=== PATIENT | male | born 1975 | race Caucasian/White ===

== ENCOUNTER → 2024-10-12 17:07 | Outpatient (CLI) | payer MEDICARE, MEDICAID, SELFPAY ==
[2024-10-12 17:48] LABS: Hematocrit 45.8 % (41-53); Hemoglobin 15.3 g/dL (13.5-17.5); Mean Corpuscular HGB Conc 33.4 % (30-36); Mean Corpuscular Hemoglobin 31.4 PG (26-34); Mean Corpuscular Volume 94.2 fL (80-100); Platelet Count 189 X10^3/uL (150-400); Red Blood Cell Count 4.87 X10^6/uL (4.5-5.9); Red Cell Distribution Width 14.6 % (11.6-14.8)
[2024-10-12 17:58] LABS: Alanine Aminotransferase 19 IU/L (<50); Albumin 4.6 g/dL (3.5-5.0); Albumin Globulin Ratio 1.9 (1.0-2.8); Alkaline Phosphatase 54 U/L (38-126); Aspartate Aminotransferase 24 IU/L (17-59); BUN Creatinine Ratio 14.6 (6-22); Bilirubin Total 0.9 mg/dL (0.2-1.3); Blood Urea Nitrogen 13 mg/dL (9-20); Calcium 9.7 mg/dL (8.4-10.2); Carbon Dioxide 35 mmol/L (22-32); Chloride 99 mmol/L (98-107); Cholesterol 131 mg/dL (140-199); Estimated Glomerular Filt Rate > 60 mL/min (>60); Globulin 2.4 g/dL (1.7-4.1); Glucose 99 mg/dL (70-100); HDL Cholesterol 53 mg/dL (40-60); HEMOLYSIS 15 (0-50); LDL Cholesterol Calculated 57 mg/dL (<100); Potassium 3.7 mmol/L (3.4-5.1); Sodium 139 mmol/L (137-145); Triglycerides 107 mg/dL (35-150)
[2024-10-13 15:44] LABS: HIV 1 & 2 Ab/Ag 4th Gen Combo NEGATIVE (NEGATIVE); Hep C Virus Ab w/Reflex Quant NEGATIVE s/c (NEGATIVE)
== END ==
PROVIDERS: PCP Family Medicine; Referring Provider Family Medicine; Visit Provider Family Medicine
DX: R55 Syncope and collapse (principal); R06.02 Shortness of breath; R41.89 Other symptoms and signs involving cognitive functions and awareness; G80.9 Cerebral palsy, unspecified
CPT/HCPCS: 36415; 80053; 80061; 85027; 86803; 87389

== ENCOUNTER → 2024-11-17 13:12 | Outpatient (CLI) | payer MEDICARE, MEDICAID, SELFPAY ==
--- NOTE | 2024-11-17 13:14 | DI.ECHO.S_ITS ---
[facility] : : [address] : : [place] : : [id number] : : Phone: [phone] Echocardiogram Report + + :Name: TRISHA ARREOLA Study Date: 11/17/2024 Height: 69 in : :Hospital ReadingLocation: Weight: 150 lb : : Gender: Male BSA: 1.8 m2 : :: 1975 Age: 49 yrs BP: 137/96 mmHg: :Reason For Study: SYNCOPE : :Ordering Physician: DALILA ABDIPerformed By: Anuradha Paulino : :Referring: DALILA ABDI : + + Interpretation Summary The ejection fraction is estimated to be 60-65%. Diastolic parameters suggest probable normal left ventricular diastolic function and normal filling pressures. The right ventricle is normal in size and function. There is mild aortic regurgitation. There is mild tricuspid regurgitation. Pulmonary artery pressures cannot be estimated because of the lack of a measurable TR jet velocity but the IVC suggests a CVP of around 8 mmHg. There is note of liver enlargement. Recommend dedicated liver ultrasound. Result discussed with Dr. Cohen, covering physician for Dr. Abdi. Procedure: A two-dimensional transthoracic echocardiogram with color flow and Doppler was performed. The study quality was technically adequate. There is no prior echocardiogram noted for this patient. The patient was in sinus rhythm with heart rates between 71-88 bpm during the exam. Left Ventricle: The left ventricle is normal in size and wall thickness. The ejection fraction is estimated to be 60-65%. Diastolic parameters suggest probable normal left ventricular diastolic function and normal filling pressures. Right Ventricle: The right ventricle is normal in size and function. Atria: The left atrial size is normal. Right atrium is small. There is no Doppler evidence for an interatrial shunt. Mitral Valve: The mitral valve leaflets appear mildly thickened, but open well. There is trace mitral regurgitation. Aortic Valve: The aortic valve is trileaflet. The aortic valve opens well. There is no aortic valve stenosis. There is mild aortic regurgitation. Tricuspid Valve: There is mild tricuspid regurgitation. Pulmonary artery pressures cannot be estimated because of the lack of a measurable TR jet velocity but the IVC suggests a CVP of around 8 mmHg. Pulmonic Valve: The pulmonic valve leaflets are thin and pliable; valve motion is normal. There is no pulmonic valvular regurgitation. Great Vessels: The aortic root is normal size. The dimensions of the ascending aorta are normal. The IVC is of normal diameter and collapses less than 50% with a sniff. This suggests a right atrial pressure of 8 mm Hg. Pericardium/ Pleura There is no pericardial effusion. There is no pleural effusion. MMode/2D Measurements & Calculations LVIDd: 4.4 cm LVOT diam: 2.0 cm LVIDs: 2.6 cm Ao root diam: 3.2 cm FS: 41.3 % asc Aorta Diam: 3.0 cm EPSS: 0.25 cm IVSd: 0.76 cm LVPWd: 0.87 cm LV sargent. diameter/BSA (cm/m^2): 2.4 LV sys. diameter/BSA (cm/m^2): 1.4 LA A2 area: 13.2 cm2 RA long axis: 4.8 cm LA A4 area: 15.8 cm2 RA area: 10.1 cm2 LA length (vol): 5.1 cm RA vol: 18.2 ml LA vol: 34.6 ml RA : 10.0 ml/m2 LA vol index: 18.9 ml/m2 IVC diam: 1.4 cm RVD1 (basal): 3.0 cm RVD2 (mid): 3.2 cm TAPSE: 1.7 cm Doppler Measurements & Calculations Ao V2 max: 175.7 cm/sec LVOT Max Ranjith: 134.5 cm/sec Ao V2 mean: 114.9 cm/sec LV V1 max P.2 mmHg Ao max P.3 mmHg LV V1 VTI: 24.1 cm Ao mean P.0 mmHg DENNIS(I,D): 2.3 cm2 Ao V2 VTI: 33.1 cm DENNIS(V,D): 2.4 cm2 sev ratio: 0.73 DENNIS indexed to BSA (cm^2/m^2): 1.2 AI P1/2t: 446.6 msec AI dec slope: 355.3 cm/sec2 MV E max ranjith: 101.7 cm/sec PA V2 max: 153.7 cm/sec MV A max ranjith: 120.6 cm/sec PA V2 mean: 102.7 cm/sec MV E/A: 0.84 PA mean P.8 mmHg Med Peak E' Ranjith: 7.6 cm/sec E/E' med: 13.3 Lat Peak E' Ranjith: 14.6 cm/sec E/E' lat: 7.0 E/e' average: 10.1 MV dec time: 0.13 sec SV(LVOT): 74.9 ml Reading Physician:07:55 PM
--- NOTE | 2024-11-17 17:47 | DI.NM.S_ITS ---
DATE OF SERVICE: 11/17/2024 EXERCISE TREADMILL STRESS TEST PROCEDURE: Exercise treadmill stress test without imaging. ORDERING PROVIDER: Leopoldo Hollins DO. INDICATIONS: The patient is a 49-year-old male with cerebral palsy and developmental delay with a recent syncopal episode. FINDINGS: 1. The patient was able to exercise for 6 minutes 13 seconds on a standard Pedro protocol suggesting moderate-severely reduced exercise capacity with a EDEL of +40%, achieving 7.0 METS. 2. He had a normal heart rate response to exercise, achieving a maximum heart rate of 155 bpm (90% of his predicted maximum). He was moderately hypertensive at rest at 150/100 but had a normal blood pressure response to exercise, reaching a maximum of 166/100. 3. He had moderate exertional dyspnea but no chest discomfort or other anginal symptoms. 4. His resting ECG shows normal sinus rhythm with subtle, nonspecific inferolateral ST-segment abnormalities. With stress, there are no significant ST-segment shifts or arrhythmias. IMPRESSION: 1. Normal exercise treadmill stress test for ischemia. 2. Moderate-severely reduced exercise capacity without angina. 3. The patient had baseline hypertension but a normal blood pressure response to exercise. Jerzy Ruvalcaba - ANIKA/clint/[employer]IN[employer] doc#: [id number]/job#: [id number] dd: 11/17/2024 17:22:00 dt: 11/17/2024 17:27:00 DICTATING /COPIES TO: Maik Bailey MD; Leopoldo Hollins DO COPIES MNE: SERGEY;
== END ==
LOC: ECHO 13:13
PROVIDERS: PCP Family Medicine; Referring Provider Family Medicine; Visit Provider Family Medicine
DX: R55 Syncope and collapse (principal); F17.200 Nicotine dependence, unspecified, uncomplicated; R06.02 Shortness of breath; I10 Essential (primary) hypertension; R16.0 Hepatomegaly, not elsewhere classified; I35.1 Nonrheumatic aortic (valve) insufficiency; I07.1 Rheumatic tricuspid insufficiency
CPT/HCPCS: 93017; 93306

== ENCOUNTER → 2024-12-22 09:34 | Outpatient (CLI) | payer MEDICARE, MEDICAID, SELFPAY ==
--- NOTE | 2024-12-22 09:36 | DI.US.S_ITS ---
PROCEDURE: US ABDOMEN LIMITED INDICATIONS: liver evaluation TECHNIQUE: Real-time scanning was performed of the abdominal and retroperitoneal organs, with image documentation. COMPARISON: None. FINDINGS: Liver: Liver is mildly enlarged and homogeneous in echotexture. Liver measures 19.5 cm. Hepatic cysts are present, largest measuring 9 mm in the left hepatic lobe. Gallbladder: No gallstones. No wall thickening. No pericholecystic edema. Negative sonographic Jesus's sign. Biliary ducts: Intrahepatic bile ducts are non-dilated. Extrahepatic bile duct not well seen due to limited windows. Pancreas: Visualized portions of the pancreas are sonographically normal. Miscellaneous: No free abdominal fluid. IMPRESSION: Hepatic cysts without internal complexity. These are most certainly benign. Mild hepatomegaly, measuring 19.5 cm. No evidence of steatosis. Dictated by: Lawrence Sánchez M.D. on 12/22/2024 at 15:36 Approved by: Lawrence Sánchez M.D. on 12/22/2024 at 15:45
== END ==
LOC: US 09:36
PROVIDERS: PCP Family Medicine; Referring Provider Family Medicine; Visit Provider Family Medicine
DX: K76.89 Other specified diseases of liver (principal); R16.0 Hepatomegaly, not elsewhere classified
CPT/HCPCS: 76705

== ENCOUNTER → 2024-12-23 10:31 | Outpatient (CLI) | payer MEDICARE, MEDICAID, SELFPAY ==
[2024-12-25 08:09] LABS: Levetiracetam Keppra 15.5 ug/mL (10.0-40.0)
== END ==
PROVIDERS: PCP Family Medicine; Referring Provider Family Medicine; Visit Provider Family Medicine
DX: G40.909 Epilepsy, unspecified, not intractable, without status epilepticus (principal)
CPT/HCPCS: 36415; 80177

== ENCOUNTER → 2025-05-31 15:55 | Outpatient (CLI) | payer MEDICARE, MEDICAID, SELFPAY ==
[2025-05-31 17:53] LABS: Alanine Aminotransferase 12 IU/L (<50); Albumin 4.3 g/dL (3.5-5.0); Albumin Globulin Ratio 1.4 (1.0-2.8); Alkaline Phosphatase 59 U/L (38-126); Blood Urea Nitrogen 23 mg/dL (9-20); Calcium 9.2 mg/dL (8.4-10.2); Carbon Dioxide 31 mmol/L (22-32); Chloride 97 mmol/L (98-107); Estimated Glomerular Filt Rate > 60 mL/min (>60); Globulin 3.0 g/dL (1.7-4.1); Glucose 84 mg/dL (70-99); Potassium 4.8 mmol/L (3.4-5.1); Sodium 136 mmol/L (137-145); Total Protein 7.3 g/dL (6.3-8.2)
[2025-05-31 17:59] LABS: HEMOLYSIS 71 (0-50)
[2025-05-31 18:22] LABS: TSH w/ Reflex to FT4 0.86 uIU/mL (0.47-4.68)
== END ==
PROVIDERS: PCP Family Medicine; Referring Provider Family Medicine; Visit Provider Family Medicine
DX: Z12.5 Encounter for screening for malignant neoplasm of prostate (principal); I10 Essential (primary) hypertension; J41.1 Mucopurulent chronic bronchitis; R63.4 Abnormal weight loss; F17.200 Nicotine dependence, unspecified, uncomplicated
CPT/HCPCS: 36415; 80053; 84443; G0103